=== PATIENT | female | born 1945 | race Caucasian/White ===

== ENCOUNTER → 2016-09-29 | Outpatient (CLI) | payer BC ==
[~2016-09-29] MED LIST: ASPI81TA28 PO; CETI10TA10 PO; ERGO1CAP35 PO; GABA300C19 PO; IBUP-103 PO; LEVO75TA PO; PRD/1 PO; PRLSR20 PO; PRVHFAIN INH; SIMV40TA2 PO
[2016-09-29 11:09] LABS: HEMATOCRIT 39.1 % (37-47); MEAN CELL VOLUME 86.9 fL (80-100); MEAN CORPUSCULAR HEMOGLOBIN 27.3 pg (25-34); MEAN CORPUSCULAR HGB CONC 31.5 g/dl (32-36); MEAN PLATELET VOLUME 10.2 fL (7.4-10.4); PLATELET COUNT 269 K/uL (130-400); WHITE BLOOD COUNT 6.45 K/uL (4.8-10.8)
[2016-09-29 11:43] LABS: ALT/SGPT 19 U/L (12-78); AST/SGOT 16 U/L (15-37); BLOOD UREA NITROGEN 17 mg/dl (7-18); BUN/CREATININE RATIO 25.9 (10-20); CALCIUM 8.7 mg/dl (8.5-10.1); CARBON DIOXIDE 33 mmol/L (21-32); CHLORIDE 102 mmol/L (98-107); CREATININE 0.67 mg/dl (0.60-1.20); GLUCOSE 92 mg/dl (70-99); SODIUM 141 mmol/L (136-145)
[2016-09-29 11:58] LABS: ALB/GLOB RATIO 1.3 (0.9-2); ALKALINE PHOSPHATASE 56 U/L (45-117); CHOLESTEROL 241 mg/dl (0-200); CHOLESTEROL/HDL RATIO 2.2; HDL CHOLESTEROL 110 mg/dl; LDL CHOLESTEROL CALCULATED 115 mg/dl; TRIGLYCERIDES 79 mg/dl (0-150); VERY LOW DENSITY LIPOPROT CALC 16 mg/dl
[2016-09-29 12:05] LABS: ESTIMATED AVERAGE GLUCOSE 120 mg/dl; HA1C FLAG Normal (Normal)
== END | disposition home or self-care (01) ==
LOC: C.LABBC 08:53
PROVIDERS: ATTEND Family Medicine
DX: E78.00 Pure hypercholesterolemia, unspecified (principal); L93.1 Subacute cutaneous lupus erythematosus; E03.9 Hypothyroidism, unspecified; M81.0 Age-related osteoporosis without current pathological fracture; R73.09 Other abnormal glucose; J44.9 Chronic obstructive pulmonary disease, unspecified

== ENCOUNTER → 2016-10-21 | Outpatient (CLI) | payer BC ==
[2016-10-21 15:33] LABS: ARTERIAL BLOOD GAS BASE EXCESS 5.1 mEq/L (-9-1.8); ARTERIAL BLOOD GAS HCO3 30 mmol/L (19-24); ARTERIAL BLOOD GAS PO2 60 mm/Hg (80-95); ARTERIAL BLOOD GAS pH 7.43 (7.35-7.45)
[2016-10-21 15:35] LABS: ALLEN TEST POS (POS); O2 ADMINISTRATION ROOM AIR
== END | disposition home or self-care (01) ==
LOC: C.LAB 14:40
PROVIDERS: ATTEND Internal Medicine Pulmonary Disease
DX: J43.9 Emphysema, unspecified (principal)

== ENCOUNTER → 2016-12-25 | Outpatient (CLI) | payer BC ==
[~2016-12-25] MED LIST changes: +GABA-1218 PO; -GABA300C19 PO
--- NOTE | 2016-12-25 12:00 | DIAGNOSTIC IMAGING REPORT ---
KUB CLINICAL HISTORY: Nephrolithiasis. COMPARISON STUDY: Renal ultrasound April 21, 2012. FINDINGS: A 7 mm left abdominal calcification likely reflects a ureteral calculus. Evaluation for ureteral calculi is difficult given stool within the colon and rectum. There is no evidence for a bowel obstruction. Radiodensities projecting over the left femoral head and lateral to the left femoral head are likely on the patient. IMPRESSION: Suspected 7 mm left renal calculus. No ureteral calculi identified. Electronically signed by: Marco Powell M.D. 12/25/2016 11:59 AM Dictated Date/Time: 12/25/2016 10:13 AM
== END | disposition home or self-care (01) ==
LOC: C.RAD1850 09:52
PROVIDERS: ATTEND Family Medicine
DX: N20.0 Calculus of kidney (principal)

== ENCOUNTER → 2016-12-25 | Outpatient (CLI) | payer BC ==
--- NOTE | 2016-12-25 14:07 | MAMMOGRAPHY REPORT ---
BILATERAL DIGITAL SCREENING MAMMOGRAM WITH CAD: 12/25/2016 CLINICAL HISTORY: Routine screening. Patient has no complaints. TECHNIQUE: Current study was also evaluated with a Computer Aided Detection (CAD) system. Bilatera l CC and MLO views were obtained. COMPARISON: Comparison is made to exams dated: 05/05/2011 mammogram, 06/07/2010 mammogram, 06/07/2010 ultrasound, 05/03/2010 mammogram - [facility], and 12/30/2006. BREAST COMPOSITION: There are scattered areas of fibroglandular density in both breasts. FINDINGS: No suspicious masses, calcifications, or areas of architectural distortion are noted in e ither breast. There has been no significant interval change compared to prior exams. Faint benign a ppearing calcifications in the left upper outer quadrants are stable dating back to at least the 200 9 exam. IMPRESSION: ACR BI-RADS CATEGORY 2: BENIGN There is no mammographic evidence of malignancy. A 1 year screening mammogram is recommended. The p atient will receive written notification of the results. Approximately 10% of breast cancers are not detected with mammography. A negative mammographic repor t should not delay biopsy if a clinically suggestive mass is present. Solange Shaw M.D. /:12/25/2016 13:23:19 [employer]: Iram MARQUEZ(Hemant)(Gil), [facility] letter sent: Normal 1/2 BI-RADS Code: ACR BI-RADS Category 2: Benign
== END | disposition home or self-care (01) ==
LOC: C.MAMM 09:33
PROVIDERS: ATTEND Obstetrics & Gynecology
DX: Z12.31 Encounter for screening mammogram for malignant neoplasm of breast (principal); N20.0 Calculus of kidney

== ENCOUNTER → 2017-07-31 | Outpatient (CLI) | payer BC ==
--- NOTE | 2017-07-31 11:30 | DIAGNOSTIC IMAGING REPORT ---
CHEST 2 VIEWS ROUTINE CLINICAL HISTORY: Hypoxia. Dyspnea on exertion. COMPARISON STUDY: Chest radiograph February 06, [address] January 08, 2014. FINDINGS: Lung hyperexpansion is noted. There is underlying emphysema. No pneumothorax or pleural effusion is present. When, compared to prior exams, there has been development of hazy right infrahilar opacity. There is no cavitation. There is no evidence of pulmonary edema. IMPRESSION: 1. Interval development of hazy right infrahilar opacity which could reflect pneumonia or atelectasis. Radiographic follow up is recommended. 2. Emphysema. Electronically signed by: Marco Powell M.D. 07/31/2017 11:28 AM Dictated Date/Time: 07/31/2017 11:24 AM
== END | disposition home or self-care (01) ==
LOC: C.RAD1850 11:01
PROVIDERS: ATTEND Family Medicine
DX: R06.09 Other forms of dyspnea (principal); R09.02 Hypoxemia

== ENCOUNTER → 2017-12-22 | Outpatient (CLI) | payer BC ==
[2017-12-22 10:44] LABS: BASO % 0.4 %; BASO ABS # 0.02 K/uL (0-0.2); EOS % 2.2 %; HEMOGLOBIN 11.7 g/dL (12.0-16.0); LYMPH % 17.3 %; MEAN CORPUSCULAR HEMOGLOBIN 26.5 pg (25-34); MEAN CORPUSCULAR HGB CONC 30.8 g/dl (32-36); MEAN PLATELET VOLUME 9.6 fL (7.4-10.4); MONO % 9.7 %; MONO ABS # 0.45 K/uL (0.11-0.59); NEUT % 70.4 %; NEUT ABS # 3.26 K/uL (1.4-6.5); PLATELET COUNT 241 K/uL (130-400); RED CELL DISTRIBUTION WIDTH CV 14.6 % (11.5-14.5); RED CELL DISTRIBUTION WIDTH SD 45.8 fL (36.4-46.3); WHITE BLOOD COUNT 4.63 K/uL (4.8-10.8)
[2017-12-22 11:15] LABS: ALBUMIN 3.7 gm/dl (3.4-5.0); ALKALINE PHOSPHATASE 60 U/L (45-117); ALT/SGPT 20 U/L (12-78); AST/SGOT 20 U/L (15-37); BLOOD UREA NITROGEN 20 mg/dl (7-18); CALCIUM 8.7 mg/dl (8.5-10.1); CARBON DIOXIDE 35 mmol/L (21-32); CHOLESTEROL 228 mg/dl (0-200); GLUCOSE 96 mg/dl (70-99); LDL CHOLESTEROL CALCULATED 111 mg/dl; POTASSIUM 4.1 mmol/L (3.5-5.1); SODIUM 139 mmol/L (136-145); TOTAL PROTEIN 7.1 gm/dl (6.4-8.2)
[2017-12-22 11:46] LABS: HEMOGLOBIN A1C 5.9 % (4.5-5.6)
== END | disposition home or self-care (01) ==
LOC: C.LAB1850 08:58
PROVIDERS: ATTEND Family Medicine
DX: E78.00 Pure hypercholesterolemia, unspecified (principal); E03.9 Hypothyroidism, unspecified; M81.0 Age-related osteoporosis without current pathological fracture; R73.03 Prediabetes

== ENCOUNTER → 2018-03-08 | Outpatient (CLI) | payer BC ==
--- NOTE | 2018-03-08 16:28 | DIAGNOSTIC IMAGING REPORT ---
CHEST 2 VIEWS ROUTINE CLINICAL HISTORY: COUGH dyspnea COMPARISON STUDY: 01/15/2018 FINDINGS: Emphysematous change. Lungs are clear. Diaphragms are somewhat flattened. IMPRESSION: Emphysematous change. No acute process. The above report was generated using voice recognition software. It may contain grammatical, syntax or spelling errors. Electronically signed by: Martinez Mcallister M.D. 03/08/2018 4:27 PM Dictated Date/Time: 03/08/2018 4:26 PM
== END | disposition home or self-care (01) ==
LOC: C.RADBC 15:48
PROVIDERS: ATTEND Family Medicine
DX: R06.02 Shortness of breath (principal); R05 Cough

== ENCOUNTER → 2018-03-09 | Outpatient (CLI) | payer BC ==
[2018-03-09 17:12] LABS: BASO % 0.1 %; BASO ABS # 0.02 K/uL (0-0.2); EOS % 0.1 %; EOS ABS # 0.01 K/uL (0-0.5); HEMATOCRIT 36.9 % (37-47); HEMOGLOBIN 11.1 g/dL (12.0-16.0); IG# 0.63 K/uL (0.00-0.02); LYMPH ABS # 1.16 K/uL (1.2-3.4); MEAN CELL VOLUME 87.6 fL (80-100); MEAN CORPUSCULAR HEMOGLOBIN 26.4 pg (25-34); MEAN CORPUSCULAR HGB CONC 30.1 g/dl (32-36); MEAN PLATELET VOLUME 8.9 fL (7.4-10.4); MONO % 8.1 %; MONO ABS # 1.18 K/uL (0.11-0.59); NEUT % 79.3 %; NEUT ABS # 11.48 K/uL (1.4-6.5); PLATELET COUNT 395 K/uL (130-400); RED CELL DISTRIBUTION WIDTH CV 13.5 % (11.5-14.5); RED CELL DISTRIBUTION WIDTH SD 43.2 fL (36.4-46.3); WHITE BLOOD COUNT 14.48 K/uL (4.8-10.8)
[2018-03-09 17:27] LABS: ALBUMIN 3.2 gm/dl (3.4-5.0); ALT/SGPT 21 U/L (12-78); AST/SGOT 16 U/L (15-37); BLOOD UREA NITROGEN 11 mg/dl (7-18); CALCIUM 8.8 mg/dl (8.5-10.1); CARBON DIOXIDE 40 mmol/L (21-32); CREATININE 0.47 mg/dl (0.60-1.20); GLUCOSE 147 mg/dl (70-99); SODIUM 139 mmol/L (136-145)
[2018-03-09 17:28] LABS: ALKALINE PHOSPHATASE 67 U/L (45-117); TOTAL PROTEIN 6.5 gm/dl (6.4-8.2)
== END | disposition home or self-care (01) ==
LOC: C.LAB 16:32
PROVIDERS: ATTEND Internal Medicine Pulmonary Disease
DX: R05 Cough (principal); R09.02 Hypoxemia; J44.9 Chronic obstructive pulmonary disease, unspecified; R06.09 Other forms of dyspnea; R06.02 Shortness of breath

== ENCOUNTER 2019-10-17 10:45 | Inpatient (IN) ==
[2019-10-17] MEDS ORDERED: CEFEPIME 2,000 MG/20 ML VIAL IV STA (11:01)
[2019-10-17] MEDS ORDERED: methylPREDNISolone 125 MG/2 ML VIAL IV STA (11:01)
[2019-10-17] MEDS ORDERED: SODIUM CHLORIDE 0.9% 1000ML 1,000 ML IV ONE (11:01)
[2019-10-17] MEDS ORDERED: ALBUT/IPRATROP 3MG/0.5MG NEB 3 ML VIAL NEB ONE (11:01)
--- NOTE | 2019-10-17 11:04 | Emergency Department Note ---
ED Provider Note NAME: NABOR SHELDON AGE: 74 SEX: F : 1945 ARRIVES VIA: Ambulance INFORMANT: [Patient, , nurse] ED PROVIDER(S): [Jordan Gannon MD] CHIEF COMPLAINT: Shortness of breath HISTORY OF PRESENT ILLNESS: The patient is a 74 year old female who presents to the ER because of shortness of breath. The patient also notes the following associated symptoms: Cough, fever, lethargy, confusion. The symptoms started 3 days ago and are worsening for the last 2 days and are described as severe. The patient has tried the f ollowing for relief : Mucinex, Sudafed, nasal spray and albuterol via nebulizer with minimal relief. The patient is a 74-year-old female who presents to the ED with complaints of dyspnea. As per her , the patient has been ill for about 3 days with a cough. She is currently tapering off of prednisone. 2 days ago she began becoming increasingly short of breath, somewhat confused and running a fever. He did try some nasal spray, some Mucinex and Sudafed with minimal relief. Today, the patient seemed quite a bit worse and the ambulance was called. In route, the patient was given a DuoNeb. She received a small amount of IV saline. She feels no different than when she was at home. The patient is a full code at present. She denies any pain currently but does admit to dyspnea, she feels dehydrated. As per the , there was no vomiting, she has had some loose stool but no real diarrhea. She has not really complained of pain. She did have a flu shot this year, she has had no recent travel. REVIEW OF SYSTEMS: See HPI for pertinent positives and negatives. A total of ten systems were reviewed and were otherwise negative. PMHx/PSHx: See Below SOCIAL HISTORY: See Below. PHYSICAL EXAM: GENERAL: Patient is in significant respiratory distress. HEENT: No acute trauma, normocephalic atraumatic, mucous membranes quite dry, no nasal congestion, no scleral icterus. NECK: No stridor, no adenopathy, no meningismus, trachea is midline. LUNGS: Diminished breath sounds bilaterally, wheezing bilaterally. She has an increased respiratory rate and does appear to be in respiratory distress, accessory muscle use is noted. HEART: Cannot really be assessed because of her lung sounds. ABDOMEN: Soft, nontender, bowel sounds positive, no hernias, no peritonitis. EXTREMITIES: No cyanosis or edema, full range of motion of all the joints without pain or difficulty, no signs for acute trauma. NEUROLOGIC: Answers simple questions, seems confused at times, no acute motor or sensory deficits, no focal weakness. SKIN: No rash, no jaundice, no diaphoresis. DIFFERENTIAL DIAGNOSIS: Reactive airway disease, pneumonia, pneumothorax, COPD, CHF, infections, cardiac ischemia, pulmonary embolism, musculoskeletal, gastrointestinal, as well as ot her pathologies. EMERGENCY DEPARTMENT COURSE/PROCEDURES: ECG: There is a sinus rhythm with a first-degree AV block, rate is 99, QTc is 426, no PVCs, no ST elevation Continuous Cardiac Monitoring: An order was placed for continuous cardiac mon itoring. The monitor shows a rate of 110 with sinus rhythm and a first-degree AV block. Critical Care note: I have personally spent greater than 50 minutes of critical care time in the direct management of this patient. This includes bedside care, interpretation of diagnostic studies and testing, discussion with consultants, the patient, and family members, and other required patient management activities. This 50 minutes is in excess of all separately billable procedures. MEDICAL DECISION MAKING: There is no leukocytosis or concerning anemia. No coagulopathy. VBG does show a respiratory acidosis with a low pH and a high CO2. Repeat VBG shows basically the same findings. Renal panel testing shows a CO2 elevation. No kidney failure. Lactic acid level is not elevated making severe sepsis less likely. There is no liver enzyme elevation. EKG shows a sinus rhythm, there is no acute ischemia. Cardiac enzyme testing x1 is not consistent with acute cardiac injury. Influenza testing was negative. Biofire testing did show evidence for human metapneumovirus. Chest film does not show pneumonia or CHF, there was no pneumothorax. The patient presents with respiratory distress, a presumed fever at home and some cough. She has underlying lung disease. She appears to be in respiratory failure with respiratory acidosis. She likely has a bronchitis with a COPD flare from the metapneumovirus infection. The patient was aggressively managed. She was placed on BiPAP. A continuous 1 hour neb was given. She did require IV Ativan, 0.5 mg IV in order to tolerate the BiPAP mask. She received IV Solu-Medrol, IV saline, IV cefepime. She was given IV hydralazine for persistently high blood pressure. I spoke to the family about the patient's condition. They understand that she is in serious/critical condition. We talked about ventilator use and the patient was initially to be placed on the ventilator if she failed BiPAP. I did speak to case management, I spoke with the tower helper and on-call hospitalist. Patient was seen by the tower helper service and after a lengthy discussion, the family decided on comfort measures only. The patient is not to be intubated. The patient is in serious/critical condition. She may not survive this hospitalization. The family is aware. She has been made a DNR as per their wishes. Impression & Plan Respiratory failure, Respiratory acidosis, Acute respiratory distress, Acute confusion, COPD exacerbation Past Med/Surg History Medical History Allergic rhinitis SILAS positive Chronic diastolic CHF (congestive heart failure) Chronic reflux esophagitis Chronic respiratory failure COPD (chronic obstructive pulmonary disease) Disc degeneration, lumbar GERD (gastroesophageal reflux disease) Glaucoma Hyperlipidemia Hypothyroidism Lumbar radiculopathy Nephrolithiasis Osteoporosis Prediabetes Pulmonary emphysema Pulmonary hypertension Raynaud's disease Subacute cutaneous lupus erythematosus Venous insufficiency Vitamin D deficiency Surgical History H/O abdominal hysterectomy (Acute) History of appendectomy History of cholecystectomy History of kidney surgery Unspecified,? Kidney stone, performed in 1977 History of vein stripping Family History Father Alzheimer disease Denies family history of Ovarian cancer Prostate cancer Myocardial infarction Breast cancer Colorectal cancer Social History Preferred Language: [place] Communication Ability: Effective Visual Impairment: Limited Hearing Ability: Normal [employer] Processing [employer] Operator Required: No Beliefs That Will Affect Care: None marital status: Current Living Situation: Spouse Current Living Situation Comment: With . current occupational status: retired Other Information That Helps Us Care for You: No Feels Safe at Home: Yes Safety Concerns: Feels Safe At This Time Smoking Status: Former smoker Tobacco Type: cigarettes ; Age Started Using Tobacco: 22 ; Age Quit Using Tobacco: 72 ; packs per day: 1 ; Cigarettes Per Day: 20 ; Do You Dip or Chew Tobacco: No ; Smoking End Date: 3 years ago. ; Number of Years Since Quit: 2 ; Second Hand Exposure: Yes ; Tobacco Cessation Education Requested by Patient: No Hx Alcohol Use: Yes Alcohol type: beer Hx Substance Use: No Childhood Exposure to Second-Hand Smoke: No caffeine: Yes (Coffee x 3-4 per day.) during the past year weight has: remained stable Dental Care, Regularly: No Physical Activity Frequency: Daily Seatbelt Use: always Sunscreen Use: Yes Results & Data Vital Signs Vital Signs - 24 hr 10/17/19 10:41 10/17/19 10:57 10/17/19 11:00 Temperature 36.6 C Temperature Source Rectal Pulse Rate 104 H 84 94 H Pulse Rate [Right Finger] Pulse Rate from SpO2 Sensor Pulse Rhythm Regular Pulse Strength Normal Respiratory Rate 22 28 H 29 H Respiratory Effort / Characteristics Accessory Muscle Use Labored Retracting Short of Breath Respiratory Depth Normal Respiratory Pattern Regular Tachypnea Blood Pressure 168/138 H 135/78 168/138 H Blood Pressure Mean 148 92 146 Blood Pressure Position Lying Pulse Oximetry 71 L Oxygen Delivery Method Nasal Cannula BiPAP Oxygen Flow Rate 4 Fraction of Inspired Oxygen Sepsis Recent Fever Within 48 Hours Yes Sepsis New/Unexplained Change in Mental Status Yes Sepsis Action Taken by Nursing Physician Notified Pulse Oximetry Post Tiitration 98 10/17/19 11:12 10/17/19 11:15 10/17/19 11:17 Temperature Temperature Source Pulse Rate 98 H 93 H Pulse Rate [Right Finger] 98 H Pulse Rate from SpO2 Sensor 94 H Pulse Rhythm Pulse Strength Respiratory Rate 16 18 16 Respiratory Effort / Characteristics Spontaneous Labored Short of Breath Spontaneous Short of Breath Respiratory Depth Shallow Respiratory Pattern Blood Pressure 174/71 H Blood Pressure Mean 92 Blood Pressure Position Pulse Oximetry 97 100 97 Oxygen Delivery Method BiPAP Oxygen Flow Rate Fraction of Inspired Oxygen 75 75 Sepsis Recent Fever Within 48 Hours Sepsis New/Unexplained Change in Mental Status Sepsis Action Taken by Nursing Pulse Oximetry Post Tiitration 10/17/19 11:33 10/17/19 11:39 10/17/19 11:45 Temperature Temperature Source Pulse Rate 96 H 99 H Pulse Rate [Right Finger] Pulse Rate from SpO2 Sensor 97 H 99 H Pulse Rhythm Pulse Strength Respiratory Rate 22 21 Respiratory Effort / Characteristics Respiratory Depth Respiratory Pattern Blood Pressure 142/108 H 171/111 H Blood Pressure Mean 118 115 Blood Pressure Position Pulse Oximetry 100 100 100 Oxygen Delivery Method BiPAP Oxygen Flow Rate Fraction of Inspired Oxygen Sepsis Recent Fever Within 48 Hours Sepsis New/Unexplained Change in Mental Status Sepsis Action Taken by Nursing Pulse Oximetry Post Tiitration 10/17/19 12:00 10/17/19 12:22 10/17/19 12:27 Temperature Temperature Source Pulse Rate 100 H 107 H 105 H Pulse Rate [Right Finger] Pulse Rate from SpO2 Sensor 96 H 107 H 106 H Pulse Rhythm Pulse Strength Respiratory Rate 18 24 26 H Respiratory Effort / Characteristics Respiratory Depth Respiratory Pattern Blood Pressure 163/75 H 165/130 H 201/96 H Blood Pressure Mean 107 138 133 Blood Pressure Position Pulse Oximetry 100 96 95 Oxygen Delivery Method Oxygen Flow Rate Fraction of Inspired Oxygen Sepsis Recent Fever Within 48 Hours Sepsis New/Unexplained Change in Mental Status Sepsis Action Taken by Nursing Pulse Oximetry Post Tiitration 10/17/19 12:39 10/17/19 12:45 10/17/19 12:54 Temperature Temperature Source Pulse Rate 105 H 107 H 112 H Pulse Rate [Right Finger] Pulse Rate from SpO2 Sensor 108 H 106 H Pulse Rhythm Pulse Strength Respiratory Rate 24 25 H 28 H Respiratory Effort / Characteristics Spontaneous Labored Respiratory Depth Respiratory Pattern Tachypnea Blood Pressure 189/72 H 172/88 H Blood Pressure Mean 124 112 Blood Pressure Position Pulse Oximetry 94 93 90 Oxygen Delivery Method Oxygen Flow Rate Fraction of Inspired Oxygen 50 Sepsis Recent Fever Within 48 Hours Sepsis New/Unexplained Change in Mental Status Sepsis Action Taken by Nursing Pulse Oximetry Post Tiitration 10/17/19 13:00 10/17/19 13:15 10/17/19 13:30 Temperature Temperature Source Pulse Rate 112 H 110 H 113 H Pulse Rate [Right Finger] Pulse Rate from SpO2 Sensor 113 H 112 H 112 H Pulse Rhythm Pulse Strength Respiratory Rate 28 H 26 H 25 H Respiratory Effort / Characteristics Respiratory Depth Respiratory Pattern Blood Pressure 171/75 H 148/73 H 167/88 H Blood Pressure Mean 97 99 105 Blood Pressure Position Pulse Oximetry 94 96 98 Oxygen Delivery Method Oxygen Flow Rate Fraction of Inspired Oxygen Sepsis Recent Fever Within 48 Hours Sepsis New/Unexplained Change in Mental Status Sepsis Action Taken by Nursing Pulse Oximetry Post Tiitration 10/17/19 13:45 10/17/19 14:00 10/17/19 14:15 Temperature Temperature Source Pulse Rate 112 H 113 H 112 H Pulse Rate [Right Finger] Pulse Rate from SpO2 Sensor 111 H 113 H 112 H Pulse Rhythm Pulse Strength Respiratory Rate 22 22 29 H Respiratory Effort / Characteristics Respiratory Depth Respiratory Pattern Blood Pressure 130/100 155/89 H 163/68 H Blood Pressure Mean 106 115 108 Blood Pressure Position Pulse Oximetry 98 96 97 Oxygen Delivery Method Oxygen Flow Rate Fraction of Inspired Oxygen Sepsis Recent Fever Within 48 Hours Sepsis New/Unexplained Change in Mental Status Sepsis Action Taken by Nursing Pulse Oximetry Post Tiitration 10/17/19 14:30 10/17/19 14:45 10/17/19 15:00 Temperature Temperature Source Pulse Rate 114 H 110 H 110 H Pulse Rate [Right Finger] Pulse Rate from SpO2 Sensor 114 H 111 H 109 H Pulse Rhythm Pulse Strength Respiratory Rate 19 23 23 Respiratory Effort / Characteristics Respiratory Depth Respiratory Pattern Blood Pressure 130/84 123/77 135/65 Blood Pressure Mean 101 96 91 Blood Pressure Position Pulse Oximetry 97 97 97 Oxygen Delivery Method Oxygen Flow Rate Fraction of Inspired Oxygen Sepsis Recent Fever Within 48 Hours Sepsis New/Unexplained Change in Mental Status Sepsis Action Taken by Nursing Pulse Oximetry Post Tiitration 10/17/19 15:15 10/17/19 15:30 10/17/19 15:45 Temperature Temperature Source Pulse Rate 106 H 103 H 107 H Pulse Rate [Right Finger] Pulse Rate from SpO2 Sensor 107 H 106 H 106 H Pulse Rhythm Pulse Strength Respiratory Rate 22 22 21 Respiratory Effort / Characteristics Respiratory Depth Respiratory Pattern Blood Pressure 132/55 L 125/65 100/82 Blood Pressure Mean 69 95 91 Blood Pressure Position Pulse Oximetry 96 96 96 Oxygen Delivery Method Oxygen Flow Rate Fraction of Inspired Oxygen Sepsis Recent Fever Within 48 Hours Sepsis New/Unexplained Change in Mental Status Sepsis Action Taken by Nursing Pulse Oximetry Post Tiitration 10/17/19 16:00 10/17/19 16:17 10/17/19 16:38 Temperature Temperature Source Pulse Rate 105 H 101 H 117 H Pulse Rate [Right Finger] Pulse Rate from SpO2 Sensor 102 H 105 H 117 H Pulse Rhythm Pulse Strength Respiratory Rate 22 32 H 29 H Respiratory Effort / Characteristics Respiratory Depth Respiratory Pattern Blood Pressure 106/66 183/96 H 200/102 H Blood Pressure Mean 92 130 162 Blood Pressure Position Pulse Oximetry 96 94 90 Oxygen Delivery Method Oxygen Flow Rate Fraction of Inspired Oxygen Sepsis Recent Fever Within 48 Hours Sepsis New/Unexplained Change in Mental Status Sepsis Action Taken by Nursing Pulse Oximetry Post Tiitration 10/17/19 16:45 10/17/19 17:00 Temperature Temperature Source Pulse Rate 113 H 112 H Pulse Rate [Right Finger] Pulse Rate from SpO2 Sensor 114 H 112 H Pulse Rhythm Pulse Strength Respiratory Rate 28 H 28 H Respiratory Effort / Characteristics Respiratory Depth Respiratory Pattern Blood Pressure 179/82 H 158/74 H Blood Pressure Mean 109 102 Blood Pressure Position Pulse Oximetry 92 93 Oxygen Delivery Method Oxygen Flow Rate Fraction of Inspired Oxygen Sepsis Recent Fever Within 48 Hours Sepsis New/Unexplained Change in Mental Status Sepsis Action Taken by Nursing Pulse Oximetry Post Tiitration Home Medications Current Medication List: was personally reviewed by me Laboratory Data Attestation: I reviewed the patient's lab results. Result diagrams: 10/17/19 11:01 10/17/19 11:01 Lab Results 10/17/19 10/17/19 10/17/19 Range/Units 10:59 11:01 11:01 WBC 9.46 (4.8-10.8) K/uL RBC 4.88 (4.2-5.4) M/uL Hgb 13.1 (12.0-16.0) g/dL Hct 45.1 (37-47) % MCV 92.4 (80-100) fL MCH 26.8 (25-34) pg MCHC 29.0 L (32-36) g/dL RDW Std Deviation 44.4 (36.4-46.3) fL RDW Coeff of Nadine 13.2 (11.5-14.5) % Plt Count 275 (130-400) K/uL MPV 10.0 (7.4-10.4) fL Immature Gran % (Auto) 0.2 % Neut % (Auto) 82.5 % Lymph % (Auto) 8.5 % [place] % (Auto) 8.8 % Eos % (Auto) 0.0 % Baso % (Auto) 0.0 % Immature Gran # (Auto) 0.02 (0.00-0.02) K/uL Neut # (Auto) 7.81 H (1.4-6.5) K/uL Lymph # (Auto) 0.80 L (1.2-3.4) K/uL [place] # (Auto) 0.83 H (0.11-0.59) K/uL Eos # (Auto) 0.00 (0-0.5) K/uL Baso # (Auto) 0.00 (0-0.2) K/uL PT 10.4 (9.0-12.0) Seconds INR 1.0 (0.9-1.1) APTT 31.3 H (21.0-31.0) Seconds PTT Ratio 1.1 VBG pH (7.36-7.41) VBG pCO2 (38-50) mmHg VBG pO2 mmHg VBG HCO3 mmol/L VBG O2 Saturation % VBG Base Excess mEq/L Barometric Pressure mm/Hg Sodium (136-145) mmol/L Potassium (3.5-5.1) mmol/L Chloride (98-107) mmol/L Carbon Dioxide (21-32) mmol/L Anion Gap (3-11) BUN (7-18) mg/dl Creatinine (0.6-1.2) mg/dl Est Cr Clr Drug Dosing ml/min Est GFR ( Amer) Est GFR (Non-Af Amer) BUN/Creatinine Ratio (10-20) Glucose (70-99) mg/dl Lactate (0.4-2.0) mmol/L Calcium (8.5-10.1) mg/dl Magnesium (1.8-2.4) mg/dl Total Bilirubin (0.2-1) mg/dl AST (15-37) U/L ALT (12-78) U/L Alkaline Phosphatase (45-117) U/L Troponin I (0-0.045) ng/ml Total Protein (6.4-8.2) gm/dl Albumin (3.4-5.0) gm/dl Globulin (2.5-4.0) gm/dl Albumin/Globulin Ratio (0.9-2) Procalcitonin (0-0.5) ng/ml Adenovirus (PCR) (NotDetected) B. pertussis DNA (PCR) (NotDetected) B.parapertussis DNA PCR (NotDetected) C. pneumoniae DNA (PCR) (NotDetected) Coronavirus OC43 (PCR) (NotDetected) Coronavirus HKU1 (PCR) (NotDetected) Coronavirus 229E (PCR) (NotDetected) Coronavirus NL63 (PCR) (NotDetected) Human Metapneumovir PCR (NotDetected) Influenza Type A (PCR) Neg for Influ A (Neg) Influenza Type B (PCR) Neg for Influ B (Neg) M. pneumoniae (PCR) (NotDetected) Parainfluenza 1 (PCR) (NotDetected) Parainfluenza 2 (PCR) (NotDetected) Parainfluenza 3 (PCR) (NotDetected) Parainfluenza 4 (PCR) (NotDetected) Entero/Rhino (PCR) (NotDetected) 10/17/19 10/17/19 10/17/19 Range/Units 11:01 11:01 11:01 WBC (4.8-10.8) K/uL RBC (4.2-5.4) M/uL Hgb (12.0-16.0) g/dL Hct (37-47) % MCV (80-100) fL MCH (25-34) pg MCHC (32-36) g/dL RDW Std Deviation (36.4-46.3) fL RDW Coeff of Nadine (11.5-14.5) % Plt Count (130-400) K/uL MPV (7.4-10.4) fL Immature Gran % (Auto) % Neut % (Auto) % Lymph % (Auto) % [place] % (Auto) % Eos % (Auto) % Baso % (Auto) % Immature Gran # (Auto) (0.00-0.02) K/uL Neut # (Auto) (1.4-6.5) K/uL Lymph # (Auto) (1.2-3.4) K/uL [place] # (Auto) (0.11-0.59) K/uL Eos # (Auto) (0-0.5) K/uL Baso # (Auto) (0-0.2) K/uL PT (9.0-12.0) Seconds INR (0.9-1.1) APTT (21.0-31.0) Seconds PTT Ratio VBG pH (7.36-7.41) VBG pCO2 (38-50) mmHg VBG pO2 mmHg VBG HCO3 mmol/L VBG O2 Saturation % VBG Base Excess mEq/L Barometric Pressure mm/Hg Sodium 136 (136-145) mmol/L Potassium 4.2 (3.5-5.1) mmol/L Chloride 90 L (98-107) mmol/L Carbon Dioxide 45 H* (21-32) mmol/L Anion Gap 1.0 L (3-11) BUN 19 H (7-18) mg/dl Creatinine 0.59 L (0.6-1.2) mg/dl Est Cr Clr Drug Dosing 65.9 ml/min Est GFR ( Amer) 106.1 Est GFR (Non-Af Amer) 91.6 BUN/Creatinine Ratio 31.4 H (10-20) Glucose 148 H (70-99) mg/dl Lactate 1.0 (0.4-2.0) mmol/L Calcium 9.2 (8.5-10.1) mg/dl Magnesium 2.1 (1.8-2.4) mg/dl Total Bilirubin 0.3 (0.2-1) mg/dl AST 23 (15-37) U/L ALT 32 (12-78) U/L Alkaline Phosphatase 67 (45-117) U/L Troponin I 0.036 (0-0.045) ng/ml Total Protein 7.6 (6.4-8.2) gm/dl Albumin 3.6 (3.4-5.0) gm/dl Globulin 4.0 (2.5-4.0) gm/dl Albumin/Globulin Ratio 0.9 (0.9-2) Procalcitonin 0.08 (0-0.5) ng/ml Adenovirus (PCR) (NotDetected) B. pertussis DNA (PCR) (NotDetected) B.parapertussis DNA PCR (NotDetected) C. pneumoniae DNA (PCR) (NotDetected) Coronavirus OC43 (PCR) (NotDetected) Coronavirus HKU1 (PCR) (NotDetected) Coronavirus 229E (PCR) (NotDetected) Coronavirus NL63 (PCR) (NotDetected) Human Metapneumovir PCR (NotDetected) Influenza Type A (PCR) (Neg) Influenza Type B (PCR) (Neg) M. pneumoniae (PCR) (NotDetected) Parainfluenza 1 (PCR) (NotDetected) Parainfluenza 2 (PCR) (NotDetected) Parainfluenza 3 (PCR) (NotDetected) Parainfluenza 4 (PCR) (NotDetected) Entero/Rhino (PCR) (NotDetected) 10/17/19 10/17/19 10/17/19 Range/Units 11:01 13:03 13:51 WBC (4.8-10.8) K/uL RBC (4.2-5.4) M/uL Hgb (12.0-16.0) g/dL Hct (37-47) % MCV (80-100) fL MCH (25-34) pg MCHC (32-36) g/dL RDW Std Deviation (36.4-46.3) fL RDW Coeff of Nadine (11.5-14.5) % Plt Count (130-400) K/uL MPV (7.4-10.4) fL Immature Gran % (Auto) % Neut % (Auto) % Lymph % (Auto) % [place] % (Auto) % Eos % (Auto) % Baso % (Auto) % Immature Gran # (Auto) (0.00-0.02) K/uL Neut # (Auto) (1.4-6.5) K/uL Lymph # (Auto) (1.2-3.4) K/uL [place] # (Auto) (0.11-0.59) K/uL Eos # (Auto) (0-0.5) K/uL Baso # (Auto) (0-0.2) K/uL PT (9.0-12.0) Seconds INR (0.9-1.1) APTT (21.0-31.0) Seconds PTT Ratio VBG pH 7.24 L 7.19 L (7.36-7.41) VBG pCO2 115 H 118 H (38-50) mmHg VBG pO2 27 44 mmHg VBG HCO3 49 44 mmol/L VBG O2 Saturation < 60.0 71.7 % VBG Base Excess 15.8 11.5 mEq/L Barometric Pressure 743.9 742.3 mm/Hg Sodium (136-145) mmol/L Potassium (3.5-5.1) mmol/L Chloride (98-107) mmol/L Carbon Dioxide (21-32) mmol/L Anion Gap (3-11) BUN (7-18) mg/dl Creatinine (0.6-1.2) mg/dl Est Cr Clr Drug Dosing ml/min Est GFR ( Amer) Est GFR (Non-Af Amer) BUN/Creatinine Ratio (10-20) Glucose (70-99) mg/dl Lactate (0.4-2.0) mmol/L Calcium (8.5-10.1) mg/dl Magnesium (1.8-2.4) mg/dl Total Bilirubin (0.2-1) mg/dl AST (15-37) U/L ALT (12-78) U/L Alkaline Phosphatase (45-117) U/L Troponin I (0-0.045) ng/ml Total Protein (6.4-8.2) gm/dl Albumin (3.4-5.0) gm/dl Globulin (2.5-4.0) gm/dl Albumin/Globulin Ratio (0.9-2) Procalcitonin (0-0.5) ng/ml Adenovirus (PCR) Not Detected (NotDetected) B. pertussis DNA (PCR) Not Detected (NotDetected) B.parapertussis DNA PCR Not Detected (NotDetected) C. pneumoniae DNA (PCR) Not Detected (NotDetected) Coronavirus OC43 (PCR) Not Detected (NotDetected) Coronavirus HKU1 (PCR) Not Detected (NotDetected) Coronavirus 229E (PCR) Not Detected (NotDetected) Coronavirus NL63 (PCR) Not Detected (NotDetected) Human Metapneumovir PCR DETECTED A* (NotDetected) Influenza Type A (PCR) Not Detected (Neg) Influenza Type B (PCR) Not Detected (Neg) M. pneumoniae (PCR) Not Detected (NotDetected) Parainfluenza 1 (PCR) Not Detected (NotDetected) Parainfluenza 2 (PCR) Not Detected (NotDetected) Parainfluenza 3 (PCR) Not Detected (NotDetected) Parainfluenza 4 (PCR) Not Detected (NotDetected) Entero/Rhino (PCR) Not Detected (NotDetected) Administered Medications Discontinued Medications Albuterol (Duoneb) 12 ml NEB ONE ONE Stop: 10/17/19 11:02 Last Admin: 10/17/19 11:17 Dose: 12 ml Documented by: [id number] Hydralazine HCl (Hydralazine Hcl) 5 mg IV NOW STA Stop: 10/17/19 12:28 Last Admin: 10/17/19 12:40 Dose: 5 mg Documented by: [id number] Sodium Chloride (Nss 1000ml) 1,000 mls @ 999 mls/hr IV .Q1H1M ONE Stop: 10/17/19 12:01 Last Infusion: 10/17/19 12:51 Dose: 0 mls/hr Documented by: [id number] Admin: 10/17/19 11:13 Dose: 999 mls/hr Documented by: [id number] Cefepime HCl (Maxipime) 2,000 mg in 20 mls @ 5 mls/min IV NOW STA; Protocol Stop: 10/17/19 11:04 Last Admin: 10/17/19 11:13 Dose: 5 mls/min Documented by: [id number] Lorazepam (Ativan) 0.5 mg in 1 mls @ 1 mls/min IV NOW STA Stop: 10/17/19 12:28 Last Admin: 10/17/19 12:39 Dose: 1 mls/min Documented by: [id number] Lorazepam (Ativan) 0.25 mg in 0.5 mls @ 0.5 mls/min IV NOW STA Stop: 10/17/19 16:31 Last Admin: 10/17/19 16:39 Dose: 0.5 mls/min Documented by: [id number] Methylprednisolone (Solumedrol) 125 mg IV NOW STA Stop: 10/17/19 11:02 Last Admin: 10/17/19 11:11 Dose: 125 mg Documented by: [id number] Imaging Data Radiologist's Impression: XR chest 1V portable CLINICAL HISTORY: SEPSIS dyspnea COMPARISON STUDY: 06/29/2018 FINDINGS: Chronic basilar interstitial change. Mild emphysematous change considered unaltered. Diaphragms are smooth. IMPRESSION: No acute process. Blood Pressure Blood Pressure Findings: Elevated blood pressure Blood Pressure Disposition: further management by hospitalist Discharge Plan Visit Data Chief Complaint: Shortness of Breath/Dyspnea Stated Complaint: sob ED Provider: Jordan Gannon Discharge Problem: Respiratory failure, Respiratory acidosis, Acute respiratory distress, Acute confusion, COPD exacerbation Patient Disposition: Being Evaluated by Hospitalist Condition: Serious Forms Stand Alone Forms: Mouth Party Prescriptions Prescriptions: No Action latanoprost [Xalatan] 0.005 % drops 1 drops OP QPM RF: 0 ipratropium-albuterol 0.5 mg-3 mg(2.5 mg base)/3 mL solution for nebulization 3 ml INHALATION QID Qty: 120 RF: 11 budesonide 0.5 mg/2 mL suspension for nebulization 2 ml INH BID Qty: 120 RF: 11 albuterol sulfate [Ventolin HFA] 90 mcg/actuation HFA aerosol inhaler 2 puffs inhalation Q4H MDD 12 puffs/day PRN (Reason: shortness of breath) Qty: 18 RF: 5 prednisone 1 mg tablet 3 mg PO DAILY Qty: 90 RF: 3 multivitamin tablet 1 tab PO QAM RF: 0 gabapentin 300 mg capsule 300 mg PO DAILY@1800 Qty: 90 RF: 0 (DME) Oxygen Home Liters Per Minute See Dose Instructions .ROUTE .MEDSUPPLY Qty: 1 RF: 0 prednisone 10 mg tablet 10 mg PO .COMPLEX Qty: 12 RF: 0 aspirin 81 mg Tablet,Delayed Release (Dr/Ec) 81 mg PO QAM RF: 0 levothyroxine 75 mcg tablet 75 mcg PO QAM RF: 0 ergocalciferol (vitamin D2) [Vitamin D2] 1,250 mcg (50,000 unit) capsule 50,000 unit PO HEML RF: 0 simvastatin 20 mg tablet 20 mg PO HS RF: 0 Referrals Referrals: Estrellita Porter DO [Primary Care Provider] - Discharge Problem: Respiratory failure Qualifiers: Chronicity: acute Respiratory failure complication: hypercapnia Qualified Code(s): J96.02 - Acute respiratory failure with hypercapnia
[2019-10-17 11:20] LABS: Base Excess VBG 15.8 mEq/L; HCO3 VBG 49 mmol/L; PCO2 VBG 115 mmHg (38-50); PO2 VBG 27 mmHg; pH VBG 7.24 (7.36-7.41)
[2019-10-17 11:22] LABS: Oxygen Saturation VBG < 60.0 %
[2019-10-17 11:23] LABS: Hematocrit (blood only) 45.1 % (37-47); Hemoglobin 13.1 g/dL (12.0-16.0); Immature Granulocytes # (auto) 0.02 K/uL (0.00-0.02); Immature Granulocytes % (auto) 0.2 %; Lymphocytes % (auto) 8.5 %; Mean Corpuscular Hemoglobin 26.8 pg (25-34); Mean Corpuscular Volume 92.4 fL (80-100); Monocytes # (auto) 0.83 K/uL (0.11-0.59); Monocytes % (auto) 8.8 %; Neutrophils # (auto) 7.81 K/uL (1.4-6.5); Neutrophils % (auto) 82.5 %; Platelet Count 275 K/uL (130-400); RDW Coefficient of Variation 13.2 % (11.5-14.5); RDW Standard Deviation 44.4 fL (36.4-46.3); Red Blood Count 4.88 M/uL (4.2-5.4); White Blood Count 9.46 K/uL (4.8-10.8)
--- NOTE | 2019-10-17 11:33 | XRay Report ---
XR chest 1V portable CLINICAL HISTORY: SEPSIS dyspnea COMPARISON STUDY: 06/29/2018 FINDINGS: Chronic basilar interstitial change. Mild emphysematous change considered unaltered. Diaphr agms are smooth. IMPRESSION: No acute process. ACT 112: Negative or not required by law. The above report was generated using voice recognition software. It may contain grammatical, syntax or spelling errors. Electronically signed by: Martinez Mcallister M.D. 10/17/2019 11:32 AM
[2019-10-17 11:34] LABS: Partial Thromboplastin Ratio 1.1; Partial Thromboplastin Time 31.3 Seconds (21.0-31.0); Prothrombin Time 10.4 Seconds (9.0-12.0)
[2019-10-17 11:57] LABS: Albumin Level 3.6 gm/dl (3.4-5.0); Bilirubin,Total 0.3 mg/dl (0.2-1); Calcium 9.2 mg/dl (8.5-10.1); Creatinine Clr Calc Pharmacy 65.9 ml/min; Est GFR (African American) 106.1; Est GFR (Non-African American) 91.6
[2019-10-17 11:58] LABS: Albumin Globulin Ratio 0.9 (0.9-2); BUN Creatinine Ratio 31.4 (10-20); Magnesium 2.1 mg/dl (1.8-2.4); Potassium 4.2 mmol/L (3.5-5.1); Total Protein 7.6 gm/dl (6.4-8.2); Troponin I 0.036 ng/ml (0-0.045)
[2019-10-17 12:11] LABS: Influenza A virus by PCR Neg for Influ A (Neg); Influenza B virus by PCR Neg for Influ B (Neg)
[2019-10-17] MEDS ORDERED: LORazepam 0.5 MG/1 ML VIAL IV STA (12:27)
[2019-10-17] MEDS ORDERED: HydrALAZINE HCL 20 MG/ML VIAL IV STA (12:27)
[2019-10-17 13:25] LABS: Base Excess VBG 11.5 mEq/L; Oxygen Saturation VBG 71.7 %; pH VBG 7.19 (7.36-7.41)
--- NOTE | 2019-10-17 13:37 | History & Physical Report ---
Date of Service October 17, 2019 Assessment & Plan (1) Respiratory failure: Patient has acute on chronic hypoxic respiratory failure with chronic hypercapnia. She is now BiPAP dependent and does not seem to be improving per VBG. Blood pressure and O2 sats are improved. Patient was given broad-spectrum antibiotics with cefepime as well as a loading dose of Solu-Medrol. We will continue both of these for now. Check blood and sputum cultures, should likely continue broad-spectrum antibiotics until infection can be definitively ruled out. I did discuss with the ER physician. The patient is on BiPAP and does not seem to be immediately improving, ICU monitoring may be the best option. Consideration to elective intubation if the patient does not improve or worsens at any point. He will discuss with the ICU attending. I did also briefly discussed this with the at bedside. He would like the patient to be full code and is agreeable to intubation if necessary. (2) Chronic diastolic CHF (congestive heart failure): Patient does not appear to be in active CHF at this time. Continue to monitor. (3) GERD (gastroesophageal reflux disease): Will order IV Protonix for GI prophylaxis. (4) Hyperlipidemia: Patient is simvastatin which we will hold patient is on BiPAP. (5) Hypothyroidism: Hold levothyroxine for now as patient will be n.p.o. History of Present Illness Primary Care Provider: Estrellita Porter, DO This a 74-year-old female with past medical history of COPD, chronic hypoxic respiratory failure, and lupus that presents today with hypoxia and significant shortness of breath. Patient has altered mental status is unable to provide any history. I did speak to the patient's at bedside. He tells me the patient has been having some worsening shortness of breath over the past 3-4 days. She is typically on 2 L nasal cannula which returns after 2.5 for activity. Her illness started with cough number worsening shortness of breath worsened. He also noted a fever on 10/14. Patient had worsening confusion yesterday but this seemed to resolve as the day went on. However, the patient's confusion worsened earlier today and this is why he sought medical attention for her. Of note, the patient has been in contact with Dr. Maxwell's office and was on a prednisone taper. She typically uses prednisone at 3 mg daily for her lupus but was put on a taper starting at 30 mg twice a day.. At time of presentation, the patient's O2 sat was down to 71%. She was started on BiPAP with 100% FiO2. This is since been titrated down to 30% and her O2 sat is 90%. Blood pressure was also significantly elevated with a systolic over 200. This is improved as well. Patient is remained afebrile since presentation. Allergies Allergy/AdvReac Type Severity Reaction Status Date / Time No Known Drug Allergies Allergy Unknown . Verified 10/17/19 12:23 Home Medications Home Medications Medication Instructions Recorded Confirmed Type aspirin 81 mg PO QAM 06/29/18 10/17/19 History gabapentin 300 mg capsule 300 mg PO DAILY@1800 #90 cap 02/25/19 10/17/19 History multivitamin 1 tab PO QAM 02/25/19 10/17/19 History latanoprost 0.005 % eye drops 1 drops OP QPM 03/02/19 10/17/19 History Oxygen Home #1 ea 06/21/19 10/11/19 History budesonide 0.5 mg/2 mL suspension 2 ml INH BID #120 ml 06/22/19 10/17/19 Rx for nebulization ipratropium 0.5 mg-albuterol 3 mg 3 ml INHALATION QID #120 vial 06/22/19 10/17/19 Rx (2.5 mg base)/3 mL nebulization soln albuterol sulfate 90 mcg/actuation 2 puffs INHALATION Q4H PRN #18 gm 10/10/19 10/17/19 Rx aerosol inhaler MDD 12 puffs/day prednisone 1 mg tablet 3 mg PO DAILY #90 tab 10/10/19 10/17/19 Rx prednisone 10 mg tablet 10 mg PO .COMPLEX #12 tab 10/11/19 10/17/19 Rx ergocalciferol (vitamin D2) 50,000 unit PO HELM 10/17/19 10/17/19 History [Vitamin D2] levothyroxine 75 mcg PO QAM 10/17/19 10/17/19 History simvastatin 20 mg PO HS 10/17/19 10/17/19 History Past Med/Surg History Social History (Updated 10/11/19 @ 15:49 by Concetta Hartman) Preferred Language: Spanish Communication Ability: Effective Visual Impairment: Limited Hearing Ability: Normal 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 Beliefs That Will Affect Care: None marital status: Current Living Situation: Spouse and Family current occupational status: retired Feels Safe at Home: Yes Smoking Status: Former smoker Tobacco Type: cigarettes ; Age Started Using Tobacco: 22 ; Age Quit Using Tobacco: 72 ; packs per day: 1 ; Cigarettes Per Day: 20 ; Number of Years Since Quit: 2 ; Second Hand Exposure: Yes ; Hx Alcohol Use: No Hx Substance Use: No Childhood Exposure to Second-Hand Smoke: No caffeine: Yes (Coffee x 3-4 per day.) during the past year weight has: remained stable Dental Care, Regularly: No Physical Activity Frequency: Daily Seatbelt Use: always Sunscreen Use: Yes Review of Systems Review of Systems: Unobtainable due to reduced consciousness Physical Exam Constitutional: + cachectic, + altered mental status and + lethargic; no acute distress Neck: trachea midline, no thyromegaly Respiratory: normal respiratory effort; no dullness to percussion Auscultation: + diminished lung sounds and + wheezes; no crackles, no rales and no rhonchi Cardiovascular: Rate/Rhythm: regular rhythm and + tachycardic Heart Sounds: normal S1 and normal S2 Gastrointestinal (Abdomen): Inspection/Auscultation: abdomen normal to inspection Percussion/Palpation: abdomen soft; abdomen nontender, no guarding, abdomen not rigid and no hepatosplenomegaly Skin: no rashes, warm and dry Psychiatric: Orientation: + not alert and + not oriented x 3 Results & Data Vital Signs (Past 12 Hours) Vital Signs Temp Pulse Resp BP Pulse Ox 10/17/19 13:15 110 H 26 H 148/73 H 96 10/17/19 13:00 112 H 28 H 171/75 H 94 10/17/19 12:54 112 H 28 H 90 10/17/19 12:45 107 H 25 H 172/88 H 93 10/17/19 12:39 105 H 24 189/72 H 94 10/17/19 12:27 105 H 26 H 201/96 H 95 10/17/19 12:22 107 H 24 165/130 H 96 10/17/19 12:00 100 H 18 163/75 H 100 10/17/19 11:45 99 H 21 171/111 H 100 10/17/19 11:39 100 10/17/19 11:33 96 H 22 142/108 H 100 10/17/19 11:15 93 H 18 174/71 H 100 10/17/19 11:00 94 H 29 H 168/138 H 10/17/19 10:57 84 28 H 135/78 10/17/19 10:41 36.6 C 104 H 22 168/138 H 71 L Laboratory Results WBCs of 9.4, hemoglobin of 13.1, hematocrit of 45.1, platelet 275. INR is 1. Sodium 136, potassium 4.2, chloride 90, carbon dioxide 45, BUN 19 creatinine 0.59. Glucose 148. LFTs are normal. Lactate is 1. Troponin 0 0.036. Patient is negative for influenza. There are 2 VBG's. The first shows a pH of 7.24, CO2 of 115. Second, performed after patient was on BiPAP shows a pH of 7.19 with a CO2 of 118. Diagnostic Findings XR chest 1V portable CLINICAL HISTORY: SEPSIS dyspnea COMPARISON STUDY: 06/29/2018 FINDINGS: Chronic basilar interstitial change. Mild emphysematous change considered unaltered. Diaphragms are smooth. IMPRESSION: No acute process. PG Care Time/CCT Total # of Minutes Spent Total Time Spent with Patient: Total time spent is greater than 50% in room cooler installer rdination of care (as documented) at patient's floor/unit and/or counseling patient: Coding Level of Care Code 06847 Initial Inpt Care Lvl 3 Diagnoses Respiratory failure J96.02 Chronicity: acute Respiratory failure complication: hypercapnia Chronic diastolic CHF (congestive heart failure) I50.32 GERD (gastroesophageal reflux disease) K21.9 Hyperlipidemia E78.5 Hypothyroidism E03.9 Hypothyroidism type: acquired (1) Respiratory failure Chronicity: acute Respiratory failure complication: hypercapnia Qualified Code(s): J96.02 - Acute respiratory failure with hypercapnia (2) Hypothyroidism Hypothyroidism type: acquired Qualified Code(s): E03.9 - Hypothyroidism, unspecified
[2019-10-17 14:56] LABS: Adenovirus PCR Not Detected (NotDetected); Bordetella parapertussis PCR Not Detected (NotDetected); Bordetella pertussis PCR Not Detected (NotDetected); Chlamydia pneumoniae PCR Not Detected (NotDetected); Coronavirus 229E PCR Not Detected (NotDetected); Coronavirus HKU1 PCR Not Detected (NotDetected); Coronavirus NL63 PCR Not Detected (NotDetected); Coronavirus OC43PCR Not Detected (NotDetected); Influenza A PCR Not Detected (NotDetected); Influenza B PCR Not Detected (NotDetected); Mycoplasma pneumoniae PCR Not Detected (NotDetected); Parainfluenza Virus 1 PCR Not Detected (NotDetected); Parainfluenza Virus 2 PCR Not Detected (NotDetected); Parainfluenza Virus 3 PCR Not Detected (NotDetected); Parainfluenza Virus 4 PCR Not Detected (NotDetected); Rhinovirus/Enterovirus PCR Not Detected (NotDetected)
[2019-10-17 14:57] LABS: Human Metapneumovirus PCR DETECTED (NotDetected)
[2019-10-17] MEDS ORDERED: LORazepam 0.25 MG/0.5 ML VIAL IV STA (16:30)
[2019-10-17] MEDS ORDERED: ALBUTEROL HFA 8 GM INHALER INH PRN (18:44)
[2019-10-17] MEDS ORDERED: ICU PROTOCOL FOR HYPERGLYCEMIA PRN (18:44)
[2019-10-17] MEDS ORDERED: ALBUT/IPRATROP 3MG/0.5MG NEB 3 ML VIAL NEB SCH (19:00)
[2019-10-17] MEDS ORDERED: ALBUT/IPRATROP 3MG/0.5MG NEB 3 ML VIAL NEB PRN (20:06)
[2019-10-17] MEDS: LORazepam 0.5 MG/1 ML VIAL IV PRN (20:14)
[2019-10-17] MEDS: LATANOPROST 0.005% OP SOLN 2.5 ML BTL OP SCH (20:15)
[2019-10-17] MEDS ORDERED: ONDANSETRON INJ 2 MG/ML 2 ML VIAL IV PRN (22:15)
[2019-10-17] MEDS ORDERED: ONDANSETRON 4 MG OD TAB SL PRN (22:15)
[2019-10-17] MEDS: FAMOTIDINE 20 MG in SYRINGE 3 ML IV SCH (22:19)
[2019-10-17 23:02] LABS: Respiratory Syncytial VirusPCR Not Detected (NotDetected)
[2019-10-18] MEDS: LORazepam 0.5 MG/1 ML VIAL IV PRN ×4 (00:17→15:18)
--- NOTE | 2019-10-18 06:08 | Electrocardiogram Report ---
Test Reason : Blood Pressure : / mmHG Vent. Rate : 099 BPM Atrial Rate : 099 BPM P-R Int : 216 ms QRS Dur : 110 ms QT Int : 332 ms P-R-T Axes : 080 094 045 degrees QTc Int : 426 ms Sinus rhythm with 1st degree A-V block Premature atrial complexes Right atrial enlargement Rightward axis Abnormal ECG When compared with ECG of 29-JUN-2018 11:56, No significant change was found Confirmed by Andre Hudson ([id number]) on 10/18/2019 6:08:35 AM Referred By: REFERRED SELF Confirmed By:Andre Hudson
[2019-10-18] MEDS: FAMOTIDINE 20 MG in SYRINGE 3 ML IV SCH ×2 (09:17→20:51)
--- NOTE | 2019-10-18 12:09 | Hospitalist Progress Note ---
Date of Service October 18, 2019 Assessment & Plan (1) Respiratory failure: On admission patient was placed on a bipap and sent to the ICU with concerns for needing intubation. However, after further discussion with family in the ICU it was decided to place patient on comfort care. She tested positive for metapneumovirus and remains on droplet precautions. (2) Chronic diastolic CHF (congestive heart failure): Patient does not appear to be in active CHF at this time. No further interventions at this time as above (3) GERD (gastroesophageal reflux disease): No further intervention as above (4) Hyperlipidemia: No further intervention as above (5) Hypothyroidism: No further intervention as above Admission and Anticipated Discharge Date Admission Date: October 17, 2019 Subjective Family at bedside. Patient is asleep, appears comfortable, does not awaken when I say her name or listen to her heart Physical Exam Constitutional: + ill appearing Respiratory: normal respiratory effort, lungs clear to auscultation Cardiovascular: RRR, no murmur, no edema Skin: no rashes, warm and dry Neurologic: + obtunded PG Care Time/CCT Total # of Minutes Spent Total Time Spent with Patient: Total time spent is greater than 50% in coordination of care (as documented) at patient's floor/unit and/or counseling patient: Coding Level of Care Code 94508 Subseq Hosp Care Lvl 2 Diagnoses Respiratory failure J96.02 Chronicity: acute Respiratory failure complication: hypercapnia Chronic diastolic CHF (congestive heart failure) I50.32 GERD (gastroesophageal reflux disease) K21.9 Hyperlipidemia E78.5 Hypothyroidism E03.9 Hypothyroidism type: acquired (1) Respiratory failure Chronicity: acute Respiratory failure complication: hypercapnia Qualified Code(s): J96.02 - Acute respiratory failure with hypercapnia (2) Hypothyroidism Hypothyroidism type: acquired Qualified Code(s): E03.9 - Hypothyroidism, unspecified
--- NOTE | 2019-10-18 14:51 | Palliative Care Consultation ---
Date of Consultation October 18, 2019 Assessment & Plan (1) Palliative care encounter: Patient is a 74-year-old female with a past medical history significant for CHF, COPD, cutaneous lupus and Raynaud's who presented to the emergency room on 10/16 with increased shortness of breath, cough and fever for approximately 3 days duration-with escalation in symptoms 2 days prior to admission. Family reports patient was very confused and lethargic and minimally responsive on admission. Patient was transferred to the ICU-placed on BiPAP, required Ativan to tolerate BiPAP. Discussion with family-they did not want intubation as this was not consistent with patient's wishes. Family opted for comfort care and patient was transferred to the fourth floor, on O2 via nasal cannula for comfort measures. Met with multiple family members including patient's , 2 daughters, [id number], [id number] and stepson. Patient appears comfortable, is unresponsive to voice or touch. -Palliative encounter-discussed end-of-life issues at length with family at bedside, provided support, answered all their questions and addressed their concerns -Respiratory failure-patient on comfort measures only, no current respiratory distress, consider adding PRN morphine for respiratory distress, patient has PRN Ativan ordered for anxiety/agitation -Patient tested positive for human metapneumovirus-contributing to patient's respiratory failure in addition to her COPD-continue PRN nebs and O2 for comfort -COPD-contributing to respiratory failure, continue PRN nebs and O2, consider adding PRN morphine for respiratory distress -CHF-no edema on exam, contributing comorbidity to her overall decline in status. Will continue to follow and provide support to family (2) Respiratory failure: Chronicity: acute Respiratory failure complication: hypercapnia Qualified Code(s): J96.02 - Acute respiratory failure with hypercapnia (3) Human metapneumovirus as the cause of diseases classified elsewhere: (4) COPD (chronic obstructive pulmonary disease): (5) Chronic diastolic CHF (congestive heart failure): History of Present Illness Reason for Consultation: End of Life Care, family support Requesting Physician: Dr Mariscal Attending Physician: Shawn Bush MD History of Present Illness Patient is a 74-year-old female with a past medical history significant for CHF, COPD, cutaneous lupus and Raynaud's who presented to the emergency room on 10/16 with increased shortness of breath, cough and fever for approximately 3 days duration-with escalation in symptoms 2 days prior to admission. Family reports patient was very confused and lethargic and minimally responsive on admission. Patient was transferred to the ICU-placed on BiPAP, required Ativan to tolerate BiPAP. Discussion with family-they did not want intubation as this was not consistent with patient's wishes. Family opted for comfort care and patient was transferred to the fourth floor, on O2 via nasal cannula for comfort measures. Met with multiple family members including patient's , 2 daughters, [id number], [id number] and stepson. Patient appears comfortable, is unresponsive to voice or touch. Allergies Allergy/AdvReac Type Severity Reaction Status Date / Time No Known Drug Allergies Allergy Unknown . Verified 10/17/19 12:23 Home Medications Home Medications Medication Instructions Recorded Confirmed Type aspirin 81 mg PO QAM 06/29/18 10/17/19 History gabapentin 300 mg capsule 300 mg PO DAILY@1800 #90 cap 02/25/19 10/17/19 History multivitamin 1 tab PO QAM 02/25/19 10/17/19 History latanoprost 0.005 % eye drops 1 drops OP QPM 03/02/19 10/17/19 History Oxygen Home #1 ea 06/21/19 10/11/19 History budesonide 0.5 mg/2 mL suspension 2 ml INH BID #120 ml 06/22/19 10/17/19 Rx for nebulization ipratropium 0.5 mg-albuterol 3 mg 3 ml INHALATION QID #120 vial 06/22/19 10/17/19 Rx (2.5 mg base)/3 mL nebulization soln albuterol sulfate 90 mcg/actuation 2 puffs INHALATION Q4H PRN #18 gm 10/10/19 10/17/19 Rx aerosol inhaler MDD 12 puffs/day prednisone 1 mg tablet 3 mg PO DAILY #90 tab 10/10/19 10/17/19 Rx prednisone 10 mg tablet 10 mg PO .COMPLEX #12 tab 10/11/19 10/17/19 Rx ergocalciferol (vitamin D2) 50,000 unit PO HELM 10/17/19 10/17/19 History [Vitamin D2] levothyroxine 75 mcg PO QAM 10/17/19 10/17/19 History simvastatin 20 mg PO HS 10/17/19 10/17/19 History Patient History Medical History Allergic rhinitis SILAS positive Chronic diastolic CHF (congestive heart failure) Chronic reflux esophagitis Chronic respiratory failure COPD (chronic obstructive pulmonary disease) Disc degeneration, lumbar GERD (gastroesophageal reflux disease) Glaucoma Hyperlipidemia Hypothyroidism Lumbar radiculopathy Nephrolithiasis Osteoporosis Prediabetes Pulmonary emphysema Pulmonary hypertension Raynaud's disease Subacute cutaneous lupus erythematosus Venous insufficiency Vitamin D deficiency Surgical History H/O abdominal hysterectomy (Acute) History of appendectomy History of cholecystectomy History of kidney surgery Unspecified,? 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 current occupational status: retired Other Information That Helps Us Care for You: No Feels Safe at Home: Yes Safety Concerns: Feels Safe At This Time Smoking Status: Former smoker Tobacco Type: cigarettes ; Age Started Using Tobacco: 22 ; Age Quit Using Tobacco: 72 ; packs per day: 1 ; Cigarettes Per Day: 20 ; Do You Dip or Chew Tobacco: No ; Smoking End Date: 3 years ago. ; Number of Years Since Quit: 2 ; Second Hand Exposure: Yes ; Tobacco Cessation Education Requested by Patient: No Hx Alcohol Use: Yes Alcohol type: beer Hx Substance Use: No Childhood Exposure to Second-Hand Smoke: No caffeine: Yes (Coffee x 3-4 per day.) during the past year weight has: remained stable Dental Care, Regularly: No Physical Activity Frequency: Daily Seatbelt Use: always Sunscreen Use: Yes Review of Systems Review of Systems: Unobtainable due to reduced consciousness Physical Exam Physical Exam: PE: Patient unresponsive to voice or touch, appears comfortable HEENT: No audible excess oral secretions, no facial grimacing Respirations: Unlabored, increased respiratory rate CV: Tachycardic Abdomen: Not distended Extremities: Toes cool to touch bilaterally, warm above the ankle Neuro: Unresponsive to voice or touch PG Care Time/CCT Total # of Minutes Spent Total Time Spent with Patient: Total time spent 60 minutes with greater than 50% of the time spent at bedside assessing patient's comfort level as well as providing support to patient's family at bedside. Coding Level of Care Code 71434 Inpt Consult Level 2 Diagnoses Palliative care encounter Z51.5 Respiratory failure J96.02 Chronicity: acute Respiratory failure complication: hypercapnia Human metapneumovirus as the cause of diseases classified elsewhere B97.81 COPD (chronic obstructive pulmonary disease) J44.9 Chronic diastolic CHF (congestive heart failure) I50.32 Time Spent (min) 60
[2019-10-18] MEDS: LATANOPROST 0.005% OP SOLN 2.5 ML BTL OP SCH (20:51)
[2019-10-19] MEDS: LORazepam 0.5 MG/1 ML VIAL IV PRN ×5 (00:54→21:20)
[2019-10-19] MEDS: ATROPINE SULFATE 1% OP SOLN 2 ML BTL SL PRN ×2 (07:19→21:19)
[2019-10-19] MEDS ORDERED: SCOPOLAMINE 1.5 MG TDSY TD ONE (08:00)
[2019-10-19] MEDS: FAMOTIDINE 20 MG in SYRINGE 3 ML IV SCH ×2 (09:06→20:27)
--- NOTE | 2019-10-19 11:14 | Palliative Care Progress Note ---
Date of Service October 19, 2019 Assessment & Plan (1) Palliative care encounter: -Pt unresponsive to verbal or tactile stimulation -Pt at the bedside. Pt brother as a staff member visiting as well. -Patient with some intermittent restlessness, medicated with Ativan, three doses in the past 24 hours. -Patient also has Morphine 1 mg IV Q2 PRN and has not utilized doses. Patient does have furrowed brow during my visit, nursing to administer comfort medications. -Patient and family members have concern regarding new visitation policy related to COVID-19. All questions answered and reassured that they would be able to continue to have one visitor with the patient at time. Confirmed that all involved family and friends are emotionally able to be alone wtih the patient, agrees. We want to provide the most comfortable scenario for all involved in this unfortunate situation. We encouraged no segregating of family members in the waiting rooms, instead meeting in the parking lots for additional contact and conversation. -For now, family does not have a goal of patient returning home. -Patient continues to make urine, small amounts. -No mottling noted. -Will continue comfort measures only here in the hospital. -Patient likely hours to days of life anticipation. -PPS: 10% (2) Respiratory failure: (3) Human metapneumovirus as the cause of diseases classified elsewhere: (4) COPD (chronic obstructive pulmonary disease): (5) Chronic diastolic CHF (congestive heart failure): Subjective Pt unresponsive to verbal or tactile stimulation Pt at the bedside. Pt brother as a staff member visiting as well. Patient with some intermittent restlessness, medicated with Ativan Please see A/P for further details. Physical Exam Constitutional: + ill appearing, + cachectic, + altered mental status and + lethargic; no acute distress Neck: trachea midline, no thyromegaly Respiratory: normal respiratory effort, lungs clear to auscultation normal respiratory effort; no dullness to percussion Auscultation: + diminished lung sounds and + wheezes; no crackles, no rales and no rhonchi Cardiovascular: RRR, no murmur, no edema Rate/Rhythm: regular rhythm and + tachycardic Heart Sounds: normal S1 and normal S2 Gastrointestinal (Abdomen): Inspection/Auscultation: abdomen normal to inspection Percussion/Palpation: abdomen soft; abdomen nontender, no guarding, abdomen not rigid and no hepatosplenomegaly Skin: no rashes, warm and dry + pallor Neurologic: + obtunded Psychiatric: Orientation: + not alert and + not oriented x 3 PG Care Time/CCT Total # of Minutes Spent Total Time Spent with Patient: Total time spent is greater than 50% in coordination of care (as documented) at patient's floor/unit and/or counseling patient: 35 Coding Level of Care Code 80559 Subseq Hosp Care Lvl 3 Diagnoses Palliative care encounter Z51.5 Respiratory failure J96.02 Chronicity: acute Respiratory failure complication: hypercapnia Human metapneumovirus as the cause of diseases classified elsewhere B97.81 COPD (chronic obstructive pulmonary disease) J44.9 Chronic diastolic CHF (congestive heart failure) I50.32 Time Spent (min) 35 Time Spent Midlevel Total time spent 35 minutes with > 50% of that time spent assessing the patient, discussing goals of care and symptom management with family and IDT. (1) Respiratory failure Chronicity: acute Respiratory failure complication: hypercapnia Qualified Code(s): J96.02 - Acute respiratory failure with hypercapnia
[2019-10-19] MEDS ORDERED: MoRPHine SULFATE 2 MG/ML CARP IV PRN (11:48)
--- NOTE | 2019-10-19 12:10 | Hospitalist Progress Note ---
Date of Service October 19, 2019 Assessment & Plan (1) Respiratory failure: On admission patient was placed on a bipap and sent to the ICU with concerns for needing intubation. However, after further discussion with family in the ICU it was decided to place patient on comfort care. She tested positive for metapneumovirus and remains on droplet precautions. - will add prn morphine and continue IV ativan for comfort (2) Chronic diastolic CHF (congestive heart failure): Patient does not appear to be in active CHF at this time. No further interventions at this time as above (3) GERD (gastroesophageal reflux disease): No further intervention as above (4) Hyperlipidemia: No further intervention as above (5) Hypothyroidism: No further intervention as above Dispo: Patient will likely pass away in the hospital. At present the hospital is allowing one visitor for end of life patients. The family is ok with rotating in and out of the room at this time. Will continue to work with palliative care, CM and the family. Admission and Anticipated Discharge Date Admission Date: October 17, 2019 Subjective Ms. Hdez appears comfortable though per her she has had a bit more agitation today. Physical Exam Constitutional: + ill appearing Respiratory: normal respiratory effort, lungs clear to auscultation Cardiovascular: RRR, no murmur, no edema Skin: + pallor Neurologic: + obtunded PG Care Time/CCT Total # of Minutes Spent Total Time Spent with Patient: Total time spent is greater than 50% in coordination of care (as documented) at patient's floor/unit and/or counseling patient: Coding Level of Care Code 99044 Subseq Hosp Care Lvl 2 Diagnoses Respiratory failure J96.02 Chronicity: acute Respiratory failure complication: hypercapnia Chronic diastolic CHF (congestive heart failure) I50.32 GERD (gastroesophageal reflux disease) K21.9 Hyperlipidemia E78.5 Hypothyroidism E03.9 Hypothyroidism type: acquired (1) Respiratory failure Chronicity: acute Respiratory failure complication: hypercapnia Qualified Code(s): J96.02 - Acute respiratory failure with hypercapnia (2) Hypothyroidism Hypothyroidism type: acquired Qualified Code(s): E03.9 - Hypothyroidism, unspecified
[2019-10-19] MEDS: CHECK SCOPOLAMINE PATCH PLACEMENT SCH (16:07)
[2019-10-19] MEDS: LATANOPROST 0.005% OP SOLN 2.5 ML BTL OP SCH (20:28)
[2019-10-20] MEDS: CHECK SCOPOLAMINE PATCH PLACEMENT SCH ×3 (00:06→15:31)
[2019-10-20] MEDS: LORazepam 0.5 MG/1 ML VIAL IV PRN ×3 (02:42→18:48)
[2019-10-20] MEDS: FAMOTIDINE 20 MG in SYRINGE 3 ML IV SCH ×2 (08:45→20:25)
--- NOTE | 2019-10-20 13:12 | Hospitalist Progress Note ---
Date of Service October 20, 2019 Assessment & Plan (1) Respiratory failure: On admission patient was placed on a bipap and sent to the ICU with concerns for needing intubation. However, after further discussion with family in the ICU it was decided to place patient on comfort care. She tested positive for metapneumovirus and remains on droplet precautions. - Continue prn morphine and continue IV ativan for comfort (2) Chronic diastolic CHF (congestive heart failure): Patient does not appear to be in active CHF at this time. No further interventions at this time as above (3) GERD (gastroesophageal reflux disease): No further intervention as above (4) Hyperlipidemia: No further intervention as above (5) Hypothyroidism: No further intervention as above Dispo: Patient will likely pass away in the hospital. Her care was discussed again with the family with palliative and they have reaffirmed that they would like to continue comfort measures only. Admission and Anticipated Discharge Date Admission Date: October 17, 2019 Subjective Discussed patient's care with daughter at bedside including continuation of comfort only measures vs resuming treatment. Discussed with palliative care who then met with both daughters at bedside. The family would like to continue comfort measures only per their discussion with palliative care. Physical Exam Physical Exam: General: no distress Respiratory: chest non tender, clear to auscultation, normal breath sounds, no respiratory distress, no accessory muscle use Cardiac: regular rate and rhythm, no rub or gallop, no murmur, no edema, no jvd Neuro/Psych: obtunded Skin: flushed cheeks, dry PG Care Time/CCT Total # of Minutes Spent Total Time Spent with Patient: Total time spent is greater than 50% in coordination of care (as documented) at patient's floor/unit and/or counseling patient: Coding Level of Care Code 00959 Subseq Hosp Care Lvl 2 Diagnoses Respiratory failure J96.02 Chronicity: acute Respiratory failure complication: hypercapnia Chronic diastolic CHF (congestive heart failure) I50.32 GERD (gastroesophageal reflux disease) K21.9 Hyperlipidemia E78.5 Hypothyroidism E03.9 Hypothyroidism type: acquired (1) Respiratory failure Chronicity: acute Respiratory failure complication: hypercapnia Qualified Code(s): J96.02 - Acute respiratory failure with hypercapnia (2) Hypothyroidism Hypothyroidism type: acquired Qualified Code(s): E03.9 - Hypothyroidism, unspecified
--- NOTE | 2019-10-20 13:39 | Palliative Care Progress Note ---
Date of Service October 20, 2019 Assessment & Plan (1) Comfort measures only status: -Patient continues on comfort measures only. -Patient is obtunded, no facial grimacing or furrowed brown. Breathing is shallow and unlabored. She is tachycardic and warm to the touch. No distress. -Patient's daughter, Daphney, at bedside. She is struggling with patient's slow decline, as they expected her to pass away within a day of being admitted to the hospital. We discussed at length about the events that occurred when patient came to the hospital, and also talked about patient's baseline illness and quality of life prior to becoming ill. Daphney states that even though patient was independent at home, she had daily struggles with her end-stage COPD. She became short of breath with any activity whatsoever. Her quality of life was declining with time and she and family knew she would eventually decompensate. -After much discussion, daughter was feeling better. Patient's other daughter, Phyllis, came in during the end of my visit and was also updated. They are both comfortable with the care patient is receiving and plan to continue comfort measures only. (2) Respiratory failure: (3) Human metapneumovirus as the cause of diseases classified elsewhere: (4) COPD (chronic obstructive pulmonary disease): (5) Chronic diastolic CHF (congestive heart failure): Subjective Patient is obtunded. Has received 4 doses of 0.5mg lorazepam in 24 hours. Appears calm and comfortable. Review of Systems Review of Systems: Unobtainable due to cognitive status Physical Exam Constitutional: + ill appearing and + thin; no acute distress Respiratory: normal respiratory effort, lungs clear to auscultation Auscultation: + diminished lung sounds Cardiovascular: Rate/Rhythm: + tachycardic Extremities: no edema Gastrointestinal (Abdomen): Inspection/Auscultation: normal bowel sounds Percussion/Palpation: abdomen soft Neurologic: + obtunded PG Care Time/CCT Total # of Minutes Spent Total Time Spent with Patient: Total time spent is greater than 50% in coordination of care (as documented) at patient's floor/unit and/or counseling patient: 65 minutes. Prolonged Care Time Prolonged Care Time: Yes 65 Coding Level of Care Code 39972 Subseq Hosp Care Lvl 3 Diagnoses Comfort measures only status Z51.5 Respiratory failure J96.02 Chronicity: acute Respiratory failure complication: hypercapnia Human metapneumovirus as the cause of diseases classified elsewhere B97.81 COPD (chronic obstructive pulmonary disease) J44.9 Chronic diastolic CHF (congestive heart failure) I50.32 Additional Codes Prolonged Care Time - Prolonged Care Time: Yes ([id number]) Time Spent (min) 65 (1) Respiratory failure Chronicity: acute Respiratory failure complication: hypercapnia Qualified Code(s): J96.02 - Acute respiratory failure with hypercapnia
[2019-10-20] MEDS: LATANOPROST 0.005% OP SOLN 2.5 ML BTL OP SCH (20:26)
--- NOTE | 2019-10-20 21:47 | Communication Note ---
Date of Service: October 20, 2019 RN paged [phone] to come and evaluate pt. Went up 2129 for evaluation. Noted: No spontaneous breathing, no HR, no response to painful stimuli, pupils fixed and dilated. Notified attending and family. Certificate of filled out and handed in. Resident Activity Tracking Resident Involvement: Resident Care Provided Care Provided: Adult [facility]
--- NOTE | 2019-10-21 07:40 | Discharge Summary ---
Date of Service October 21, 2019 Admission HPI Per Admitting Provider This a 74-year-old female with past medical history of COPD, chronic hypoxic respiratory failure, and lupus that presents today with hypoxia and significant shortness of breath. Patient has altered mental status is unable to provide any history. I did speak to the patient's at bedside. He tells me the patient has been having some worsening shortness of breath over the past 3-4 days. She is typically on 2 L nasal cannula which returns after 2.5 for activity. Her illness started with cough number worsening shortness of breath worsened. He also noted a fever on 10/14. Patient had worsening confusion yesterday but this seemed to resolve as the day went on. However, the patient's confusion worsened earlier today and this is why he sought medical attention for her. Of note, the patient has been in contact with Dr. Maxwell's office and was on a prednisone taper. She typically uses prednisone at 3 mg daily for her lupus but was put on a taper starting at 30 mg twice a day.. At time of presentation, the patient's O2 sat was down to 71%. She was started on BiPAP with 100% FiO2. This is since been titrated down to 30% and her O2 sat is 90%. Blood pressure was also significantly elevated with a systolic over 200. This is improved as well. Patient is remained afebrile since presentation. Principal Diagnosis Viral infection, respiratory failure Discharge Data Allergies Allergy/AdvReac Type Severity Reaction Status Date / Time No Known Drug Allergies Allergy Unknown . Verified 10/17/19 12:23 Consultations 10/17/19 12:16 ED Decision to Admit Stat 10/17/19 18:44 Consult Case Management - Discharge Planning Routine Consult [employer] Manager Stat Consult Palliative Care Stat Hospital Course (1) Respiratory failure: Ms. Hdez the evening of 10/19. Previous to that her care was as listed below: On admission patient was placed on a bipap and sent to the ICU with concerns for needing intubation due to metapneumovirus infection in the setting of advancing COPD. However, after further discussion with family in the ICU it was decided to place patient on comfort care. - prn morphine and IV ativan for comfort (2) Chronic diastolic CHF (congestive heart failure): Patient did not appear to be in active CHF at this time. No further interventions at this time as above (3) GERD (gastroesophageal reflux disease): No further intervention as above (4) Hyperlipidemia: No further intervention as above (5) Hypothyroidism: No further intervention as above Total Time Total Time Spent Total Time Spent (In Minutes): less than 30 minutes Discharge Plan Discharge Items Patient Disposition: Reason For Visit: ACUTE RESP FAILURE COMFORT MEASURES Condition on Discharge: Serious Admission Data Admit Date/Time: 10/17/19 17:25 Other DC Date/Time DO NOT enter until pt leaves facility: 10/20/19 22:16 Coding Level of Care Code D/C Day Management <30 mins Diagnoses Respiratory failure J96.02 Chronicity: acute Respiratory failure complication: hypercapnia Chronic diastolic CHF (congestive heart failure) I50.32 GERD (gastroesophageal reflux disease) K21.9 Hyperlipidemia E78.5 Hypothyroidism E03.9 Hypothyroidism type: acquired
--- NOTE | 2019-10-23 12:05 | Critical Care Consultation ---
Date of Consultation October 23, 2019 History of Present Illness Attending Physician: Shawn Bush MD This is a 74-year-old female with a longstanding history of COPD who presents today with a human metapneumovirus infection. Primary team and palliative care managed most of the discussion, the family stated it was the patient's wishes to not proceed with aggressive measures as intubation is at high risk for inability to liberate from the ventilator. I concur with the hospitalist opinion given the severity of disease I also concur with comfort measures. Allergies Allergy/AdvReac Type Severity Reaction Status Date / Time No Known Drug Allergies Allergy Unknown . Verified 10/17/19 12:23 Home Medications Home Medications Medication Instructions Recorded Confirmed Type aspirin 81 mg PO QAM 06/29/18 10/17/19 History gabapentin 300 mg capsule 300 mg PO DAILY@1800 #90 cap 02/25/19 10/17/19 History multivitamin 1 tab PO QAM 02/25/19 10/17/19 History latanoprost 0.005 % eye drops 1 drops OP QPM 03/02/19 10/17/19 History Oxygen Home #1 ea 06/21/19 10/11/19 History budesonide 0.5 mg/2 mL suspension 2 ml INH BID #120 ml 06/22/19 10/17/19 Rx for nebulization ipratropium 0.5 mg-albuterol 3 mg 3 ml INHALATION QID #120 vial 06/22/19 10/17/19 Rx (2.5 mg base)/3 mL nebulization soln albuterol sulfate 90 mcg/actuation 2 puffs INHALATION Q4H PRN #18 gm 10/10/19 10/17/19 Rx aerosol inhaler MDD 12 puffs/day prednisone 1 mg tablet 3 mg PO DAILY #90 tab 10/10/19 10/17/19 Rx prednisone 10 mg tablet 10 mg PO .COMPLEX #12 tab 10/11/19 10/17/19 Rx ergocalciferol (vitamin D2) 50,000 unit PO HELM 10/17/19 10/17/19 History [Vitamin D2] levothyroxine 75 mcg PO QAM 10/17/19 10/17/19 History simvastatin 20 mg PO HS 10/17/19 10/17/19 History Patient History Medical History Allergic rhinitis SILAS positive Chronic diastolic CHF (congestive heart failure) Chronic reflux esophagitis Chronic respiratory failure COPD (chronic obstructive pulmonary disease) Disc degeneration, lumbar GERD (gastroesophageal reflux disease) Glaucoma Hyperlipidemia Hypothyroidism Lumbar radiculopathy Nephrolithiasis Osteoporosis Prediabetes Pulmonary emphysema Pulmonary hypertension Raynaud's disease Subacute cutaneous lupus erythematosus Venous insufficiency Vitamin D deficiency Surgical History H/O abdominal hysterectomy (Acute) History of appendectomy History of cholecystectomy History of kidney surgery Unspecified,? Kidney stone, performed in 1977 History of vein stripping Family History Father Alzheimer disease Denies family history of Ovarian cancer Prostate cancer Myocardial infarction Breast cancer Colorectal cancer Social History Preferred Language: [place] Communication Ability: Unable Visual Impairment: Limited Hearing Ability: Normal Signals Collector/Analyst Required: No Beliefs That Will Affect Care: None marital status: Current Living Situation: Spouse Current Living Situation Comment: With . current occupational status: retired Feels Safe at Home: Yes Smoking Status: Former smoker Tobacco Type: cigarettes ; Age Started Using Tobacco: 22 ; Age Quit Using Tobacco: 72 ; packs per day: 1 ; Cigarettes Per Day: 20 ; Number of Years Since Quit: 2 ; Second Hand Exposure: Yes ; Hx Alcohol Use: Yes Alcohol type: beer Hx Substance Use: No Childhood Exposure to Second-Hand Smoke: No caffeine: Yes (Coffee x 3-4 per day.) during the past year weight has: remained stable Dental Care, Regularly: No Physical Activity Frequency: Daily Seatbelt Use: always Sunscreen Use: Yes Coding Level of Care Code None
== END 2019-10-20 22:16 | disposition expired | DRG 189 ==
LOC: ED 10:45 → SUATTDRO 17:25 → 4W 17:25